=== PATIENT | male | born 2000 | race Caucasian/White ===

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

== ENCOUNTER 2021-08-13 13:31 | Emergency (ER) | payer SELFPAY ==
[2021-08-13 14:26] LABS: HEMOGLOBIN 15.4 gm/dl (14.0-17.5); RED BLOOD COUNT 5.14 M/UL (4.20-5.50); WHITE BLOOD COUNT 20.5 K/UL (4.5-11.0)
[2021-08-13 14:39] LABS: BUN/CREATININE RATIO 15 (0-10)
== END 2021-08-13 19:25 | disposition short-term general hospital (02) ==
LOC: ER1 13:31
PROVIDERS: Emergency Medicine
DX: G40.311 Generalized idiopathic epilepsy and epileptic syndromes, intractable, with status epilepticus (principal); Z20.822 Contact with and (suspected) exposure to COVID-19
CPT/HCPCS: 0240U; 31500; 36600; 51702; 70450; 71045; 72125; 80053; 80307; 81001; 82140; 82550; 82803; 83605; 83735; 84100; 85025; 87040; 87086; 93005; 94002; 94760; 96374; 96375; 99285; G0480; J0330; J0696; J1953; J2060; J2250; J2310; J2704